=== PATIENT | female | born 1960 | race Caucasian/White ===

== ENCOUNTER 2020-07-25 16:22 | Emergency (ER) | payer BC ==
--- NOTE | 2020-07-25 17:27 | EDM.PDOC ---
ED HPI GENERAL MEDICAL PROBLEM - General Chief Complaint: General Stated Complaint: Dizziness, Lightheaded Time Seen by Provider: 07/25/20 16:49 Source of Information: Reports: Patient History Limitations: Reports: No Limitations - History of Present Illness INITIAL COMMENTS - FREE TEXT/NARRATIVE: Patient comes to ER with complaint of dizziness. This started today. Had brief episode earlier this morning. It came back this afternoon and persisted. Patient admits this made her anxious and she does have history of anxiety. Describes it as being different from vertigo. Has had vertigo in past and needed to take Meclizine/do PT exercises and is familiar with it's symptoms. Last episode vertigo was a month ago. She has had two teeth bothering her on the left side of her face, one upper, and one lower. They have been problematic for a few weeks and she was unable to get into dentist last week to have them checked. No gum swelling or drainage. No dental trauma. Today left side of her face was numb when she was dizzy. This improved as dizziness improved. No facial weakness/problems with lid lag/visual changes. Left ear feels "hot" and somewhat plugged. No other new pain complaint. Denies headache. [place] a little chilled earlier but chalked that up to 'female issues'. No other acute complaints/changes. No fevers. No runny nose/sore throat. No cough/wheeze/SOB No chest pain. No nausea/emesis/bowel changes/abdominal pain. No problems with urination. 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: Acetaminophen, NSAIDS left tooth pain upper and lower Pain Score (Numeric/FACES): 1 - Related Data Allergies Allergy/AdvReac Type Severity Reaction Status Date / Time morphine Allergy Shaking Verified 07/25/20 16:24 Home Meds: Home Meds Acetaminophen [Tylenol] 650 mg PO Q4H PRN 07/25/20 [History] Ibuprofen 200 mg PO Q6HR PRN 07/25/20 [History] Multivitamin 1 each PO DAILY 07/25/20 [History] Non-Formulary Medication [NF Drug] 1 tab PO DAILY 07/25/20 [History] Pantoprazole [ProTONIX] 40 mg PO DAILY 07/25/20 [History] Past Medical History Gastrointestinal History: Reports: GERD Psychiatric History: Reports: Anxiety Social & Family History - Tobacco Use Tobacco Use Status *Q: Former Tobacco User Used Tobacco, but Quit: Yes Month/Year Tobacco Last Used: 1999 ED ROS GENERAL - Review of Systems Review Of Systems: Comprehensive ROS is negative, except as noted in HPI. ED EXAM, GENERAL - Physical Exam Exam: See Below Exam Limited By: No Limitations General Appearance: Alert, Anxious Eye Exam: Bilateral Eye: EOMI, PERRL Ears: Normal External Exam, Normal Canal, Hearing Grossly Normal, Normal TMs Nose: No: Nasal Deformity, Nasal Swelling, Nasal Drainage Throat/Mouth: Normal Lips, Normal Voice, No Airway Compromise, Other (gums appea r normal. Tender with palpation around upper left and lower left cuspids. No evidence of obvious cavities. ) Head: Atraumatic, Normocephalic. No: Facial Swelling, Facial Tenderness, Sinus Tenderness Neck: Normal Inspection, Supple, Non-Tender, Full Range of Motion. No: Lymphadenopathy (L), Lymphadenopathy (R) Respiratory/Chest: No Respiratory Distress, Lungs Clear, Normal Breath Sounds, No Accessory Muscle Use Cardiovascular: Normal Peripheral Pulses, Regular Rate, Rhythm, No Edema, No Murmur GI/Abdominal: Normal Bowel Sounds, Soft, Non-Tender, No Distention (Female) Exam: Deferred Rectal (Female) Exam: Deferred Back Exam: No: CVA Tenderness (L), CVA Tenderness (R), Muscle Spasm, Paraspinal Tenderness, Vertebral Tenderness Extremities: Normal Inspection, Non-Tender, Normal Capillary Refill Neurological: Alert, Oriented, CN II-XII Intact, Normal Cognition, Normal Gait, No Motor/Sensory Deficits Psychiatric: Anxious Skin Exam: Warm, Dry, Intact, Normal Color. No: Erythema, Increased Warmth #1 Interpretation EKG Date: 07/25/20 Time: 17:10 Rhythm: NSR Rate (Beats/Min): 89 [place]: Normal P-Wave: Present QRS: Other (low voltage) ST-T: Other (no acute changes suggestive of acute ischemia noted) QT: Prolonged Comparison: NA - No Prior EKG Course - Vital Signs Last Recorded V/S: Last Vital Signs Temp 36.2 C 07/25/20 16:33 Pulse 67 07/25/20 17:39 Resp 14 07/25/20 17:39 BP 128/88 07/25/20 17:39 Pulse Ox 96 07/25/20 17:39 - Orders/Labs/Meds Orders: Active Orders 24 hr Category Date Time Status EKG Documentation Completion [RC] ASDIRECTED Care 07/25/20 16:39 Active Head wo Cont [CT] Stat Exams 07/25/20 16:38 Taken Maxillofacial w/o CM [Max Facial Sinus wo Cont] [CT] Exams 07/25/20 16:49 Taken Stat PE Chest [Ang Chest] [CT] Stat Exams 07/25/20 18:03 Taken UA RFX BRITTANY AND CULT IF INDIC [URIN] Routine Lab 07/25/20 16:40 Ordered Labs: Laboratory Tests 07/25/20 07/25/20 07/25/20 Range/Units 16:35 17:00 17:00 WBC 6.2 (4.0-10.2) K/uL RBC 3.87 (3.77-5.09) M/uL Hgb 10.4 L (11.7-15.5) g/dL Hct 33.3 L (34.0-46.0) % MCV 86.0 (84.0-98.0) fL MCH 26.9 L (28.2-33.3) pg MCHC 31.2 L (31.7-36.0) g/dL RDW 13.8 (11.2-14.1) % Plt Count 339 (150-350) K/uL Neut % (Auto) 67.8 (45.0-80.0) % Lymph % (Auto) 20.1 (10.0-50.0) % [place] % (Auto) 6.3 (2.0-14.0) % Eos % (Auto) 5.3 H (0.0-5.0) % Baso % (Auto) 0.5 (0.0-2.0) % Neut # (Auto) 4.23 (1.40-7.00) K/uL Lymph # (Auto) 1.25 (0.50-3.50) K/uL [place] # (Auto) 0.39 (0.00-1.00) K/uL Eos # (Auto) 0.33 (0.00-0.50) K/uL Baso # (Auto) 0.03 (0.00-0.20) K/uL D-Dimer, Quantitative (0-400) ng/mL Sodium 142 (136-145) mmol/L Potassium 4.0 (3.5-5.1) mmol/L Chloride 100 (98-107) mmol/L Carbon Dioxide 26.6 (21.0-32.0) mmol/L BUN 15 (7-18) mg/dL Creatinine 1.03 (0.51-1.17) mg/dL Est Cr Clr Drug Dosing 54.37 mL/min Estimated GFR (MDRD) 55 mL/min Glucose 118 H (74-106) mg/dL POC Glucose 103 (65-110) mg/dl Calcium 9.5 (8.5-10.1) mg/dL Magnesium 2.0 (1.8-2.4) mg/dL Total Bilirubin 0.3 (0.2-1.0) mg/dL AST 21 (15-37) U/L ALT 31 (12-78) U/L Alkaline Phosphatase 105 (46-116) IU/L Troponin I 0.005 (0.000-0.056) ng/mL Total Protein 7.5 (6.4-8.2) g/dL Albumin 4.1 (3.4-5.0) g/dL 07/25/20 Range/Units 17:00 WBC (4.0-10.2) K/uL RBC (3.77-5.09) M/uL Hgb (11.7-15.5) g/dL Hct (34.0-46.0) % MCV (84.0-98.0) fL MCH (28.2-33.3) pg MCHC (31.7-36.0) g/dL RDW (11.2-14.1) % Plt Count (150-350) K/uL Neut % (Auto) (45.0-80.0) % Lymph % (Auto) (10.0-50.0) % [place] % (Auto) (2.0-14.0) % Eos % (Auto) (0.0-5.0) % Baso % (Auto) (0.0-2.0) % Neut # (Auto) (1.40-7.00) K/uL Lymph # (Auto) (0.50-3.50) K/uL [place] # (Auto) (0.00-1.00) K/uL Eos # (Auto) (0.00-0.50) K/uL Baso # (Auto) (0.00-0.20) K/uL D-Dimer, Quantitative 559 H (0-400) ng/mL Sodium (136-145) mmol/L Potassium (3.5-5.1) mmol/L Chloride (98-107) mmol/L Carbon Dioxide (21.0-32.0) mmol/L BUN (7-18) mg/dL Creatinine (0.51-1.17) mg/dL Est Cr Clr Drug Dosing mL/min Estimated GFR (MDRD) mL/min Glucose (74-106) mg/dL POC Glucose (65-110) mg/dl Calcium (8.5-10.1) mg/dL Magnesium (1.8-2.4) mg/dL Total Bilirubin (0.2-1.0) mg/dL AST (15-37) U/L ALT (12-78) U/L Alkaline Phosphatase (46-116) IU/L Troponin I (0.000-0.056) ng/mL Total Protein (6.4-8.2) g/dL Albumin (3.4-5.0) g/dL Meds: Medications Discontinued Medications Generic Name Dose Route Start Last Admin Trade Name Freq PRN Reason Stop Dose Admin Iopamidol 100 ml 07/25/20 13:00 07/25/20 18:40 Isovue-370 (76%) IVPUSH 07/25/20 13:01 100 ml ONETIME ONE Administration - Re-Assessments/Exams Free Text/Narrative Re-Assessment/Exam: 07/25/20 20:[address] of brain to rule out aneurysm/intracranial cause for facial numbness/dizziness. Facial CT added to look for abscess or other localized findings given patient's complaint of several teeth hurting along with the pain/numbness/full sensation of left ear. Radiology read these as unremarkable for acute changes. Evidence of volume loss right side of brain suggests remote vessel injury. CBC/Chem/MG/Trop/DDimer ordered. Unremarkable except for elevated DDimer. Patient recalled having sore right calf muscle in June. Denied SOB/chest pain but dizziness can be complaint associated with PE. She elected to have CT scan performed to rule out PE. This was read by radiology as negative for PE. Incidental non-calcified pulmonary nodules noted on scan and it is recommended that patient have repeat imaging in 3-6 months. Patient's BP drastically improved after initial arrival. Was very anxious when she first arrived. Normal at this time. Discomfort in left mid face and dizziness has also improved but not totally resolved. Differential includes dental infection/inner ear infection/trigeminal neuralgia. Patient given reassurance and encouraged to watch for additional changes over the next 24-48 hours. Plan at this time is to start Amox 500mg TID for 10 days. She is to follow up with her primary provider in [place] for ongoing rechecks/continued medical evaluation of the above concerns. To follow up in ER as needed PRN sudden worsening. Patient declined pain/dizziness meds in ER. Has Meclizine for PRN use at home. Departure - Departure Time of Disposition: 19:37 Disposition: Home, Self-Care 01 Condition: Good Clinical Impression: Left facial numbness, Pain, dental, Dizziness - Discharge Information *PRESCRIPTION DRUG MONITORING PROGRAM REVIEWED*: Not Applicable *COPY OF PRESCRIPTION DRUG MONITORING REPORT IN PATIENT ROMEL: Not Applicable Referrals: PCP,Not In Area [Primary Care Provider] - Forms: ED Department Discharge Additional Instructions: Take Amoxicillin three times a day for a week. See if your dentist can see you Monday or Monday. Remember that you might be experiencing early symptoms of a virus or something like trigeminal neuralgia. It may take a few days of watching for new symptoms/changes to get a better idea of why you are uncomfortable. Check in with your doctor to discuss updated preventative health goals. You will need to schedule another CT of the chest in 3-6 months so they can recheck a few spots that they noticed today. Discuss this too with your doctor. Try the meclizine and see if that helps your dizziness too. Call if you have questions. Follow up in ER if you have sudden problems. Sepsis Event Note (ED) - Evaluation Sepsis Screening Result: No Definite Risk - Focused Exam Vital Signs: Vital Signs Temp Pulse Resp BP Pulse Ox 07/25/20 17:39 67 14 128/88 96 07/25/20 17:05 80 16 141/90 H 98 07/25/20 16:33 36.2 C 103 H 13 178/97 H 98 - My Orders Last 24 Hours: My Active Orders 07/25/20 16:38 Head wo Cont [CT] Stat 07/25/20 16:39 EKG Documentation Completion [RC] ASDIRECTED 07/25/20 16:40 UA RFX BRITTANY AND CULT IF INDIC [URIN] Routine 07/25/20 16:49 Maxillofacial w/o CM [Max Facial Sinus wo Cont] [CT] Stat 07/25/20 18:03 PE Chest [Ang Chest] [CT] Stat - Assessment/Plan Last 24 Hours: My Active Orders 07/25/20 16:38 Head wo Cont [CT] Stat 07/25/20 16:39 EKG Documentation Completion [RC] ASDIRECTED 07/25/20 16:40 UA RFX BRITTANY AND CULT IF INDIC [URIN] Routine 07/25/20 16:49 Maxillofacial w/o CM [Max Facial Sinus wo Cont] [CT] Stat 07/25/20 18:03 PE Chest [Ang Chest] [CT] Stat
[2020-07-25] MEDS: Iopamidol 755 Mg/ML 100 ML Bottle IVPUSH ONE (18:40)
== END 2020-07-25 20:15 | disposition home or self-care (01) ==
LOC: LL.ED 16:22
DX: R42 Dizziness and giddiness (principal); K08.89 Other specified disorders of teeth and supporting structures; R20.0 Anesthesia of skin; K21.9 Gastro-esophageal reflux disease without esophagitis; Z87.891 Personal history of nicotine dependence; Z88.5 Allergy status to narcotic agent; Z79.899 Other long term (current) drug therapy
CPT/HCPCS: 36415; 70450; 70486; 71275; 80053; 82962; 83735; 84484; 85025; 85379; 93005; 99284-25; Q9967